=== PATIENT | female | born 1965 | race Caucasian/White ===

== ENCOUNTER 2017-11-06 07:58 | Emergency (ER) | payer OTHER ==
[~2017-11-06] VITALS: Ht 170.2 cm; Wt 64.9 kg
[2017-11-06] MEDS ORDERED: KETOROLAC TROMETHAMINE 30 MG INJ IVP ONE (08:30)
[2017-11-06] MEDS ORDERED: CLINDAMYCIN PHOSPHATE IV 600 MG in IV DEXTROSE 5% 100 ML IV ONE (08:30)
[2017-11-06] MEDS ORDERED: DEXAMETHASONE SOD PHOSPHATE 4 MG INJ IV ONE (08:30)
[2017-11-06] MEDS ORDERED: IV NORMAL SALINE 1000 ML BAG IV ONE (08:30)
[2017-11-06] MEDS ORDERED: DEXAMETHASONE SOD PHOSPHATE 10 MG INJ ONE (08:40)
[2017-11-06] MEDS ORDERED: KETOROLAC TROMETHAMINE 30 MG INJ ONE (08:40)
[2017-11-06] MEDS ORDERED: CLINDAMYCIN PHOSPHATE 600 MG/4 ML VIAL ONE (08:40)
[2017-11-06 08:52] LABS: BASOPHILS % (AUTO) 0.5 % (0.0-2.0); EOSINOPHILS # (AUTO) 0.1 K/uL (0.0-0.7); HEMATOCRIT 41.8 % (31.2-41.9); HEMOGLOBIN 14.7 g/dL (10.9-14.3); LYMPHOCYTES # (AUTO) 1.6 K/uL (20.0-40.0); LYMPHOCYTES % (AUTO) 23.9 % (20.5-51.5); MEAN CORPUSCULAR HEMOGLOBIN 32.2 uug (24.7-32.8); MEAN CORPUSCULAR HGB CONC 35 g/dL (32.3-35.6); MEAN CORPUSCULAR VOLUME 91.3 fL (75.5-95.3); MONOCYTES # (AUTO) 0.5 K/uL (2.0-10.0); MONOCYTES % (AUTO) 7.6 % (0.0-11.0); NEUTROPHILS # (AUTO) 4.5 K/uL (1.8-8.9); PLATELET COUNT (AUTO) 199 K/uL (179-408); RED BLOOD CELL COUNT(AUTO) 4.58 MIL/uL (3.63-4.92); WHITE BLOOD COUNT (AUTO) 6.7 K/uL (3.8-11.8)
--- NOTE | 2017-11-06 08:59 | NUR ---
LABS DRAWN-SENT, IV PLACED, MEDS ADMIN. PT POSITIONED FOR COMFORT.
[2017-11-06 09:04] LABS: CREATININE 0.8 mg/dL (0.6-1.3); POTASSIUM 4.1 mmol/L (3.5-5.1)
[2017-11-06 09:10] LABS: BILIRUBIN,DIRECT 0.2 mg/dL (0.0-0.2); BILIRUBIN,TOTAL 1.3 mg/dL (0.2-1.0); TOTAL PROTEIN, SERUM 7.6 g/dL (6.4-8.2)
--- NOTE | 2017-11-06 09:37 | NUR ---
MSE COMPLETED, IV D/C'D INTACT, ACI/RX X1 GIVEN. PT GOT DRESSED/AMBULATED W/O DIFF/TOOK ALL BELONGINGS.
[2017-11-06 09:59] VITALS: BP 111/77
== END 2017-11-06 09:37 | disposition home or self-care (01) ==
LOC: ER 08:02
DX: I88.8 Other nonspecific lymphadenitis (principal)
CPT/HCPCS: 36415; 80048; 80076; 83605; 84484; 84703; 85025; 85730; 87040 ×2; 96365; 96375; 99284; A4663; J1100; J1885; J3490; J7030; J7060; 70030-TC